=== PATIENT | male | born 1970 | race Caucasian/White ===

== ENCOUNTER 2017-01-22 23:35 | Emergency (ER) | payer OTHER ==
[~2017-01-22] VITALS: Ht 172.7 cm; Wt 73.8 kg
[2017-01-23 01:02] LABS: BASOPHIL COUNT 0.1 K/uL (0-0.1); EOSINOPHIL COUNT 0.2 K/uL (0-0.3); HEMATOCRIT 42.5 % (38.0-50.0); IMMATURE GRANULOCYTE (%) 0.8 % (0.0-0.7); IMMATURE GRANULOCYTE COUNT 0.1 K/uL; INSTRUMENT ABS NEUTROPHIL CT 7.6 K/uL; LYMPHOCYTE COUNT 3.4 K/uL (1.0-2.8); MCH 29.5 PG (29.0-34.0); MCHC 34.4 G/DL (30.0-36.0); MCV 85.9 FL (86-99); MEAN PLAT.VOLUME 10.2 uM^3 (9.0-12.4); MONOCYTE (%) 6.9 % (3-12); MONOCYTE COUNT 0.9 K/uL (0-0.8); NEUTROPHIL COUNT 7.6 K/uL (1.8-6.4); PLATELET COUNT 150 K/uL (156-360); RBC DIS.WIDTH-CV 13.2 % (11.8-14.6); RBC DIS.WIDTH-SD 41.1 % (39-53); RED BLOOD COUNT 4.95 M/uL (4.00-5.50); WHITE BLOOD COUNT 12.2 K/uL (4.1-10.2)
[2017-01-23 01:11] LABS: CHLORIDE 111 mEq/L (99-109); POTASSIUM 3.7 mEq/L (3.7-5.4); SODIUM 143 mEq/L (136-147)
[2017-01-23 01:13] LABS: GLUCOSE 130 mg/dL (70-99)
[2017-01-23 01:14] LABS: ANION GAP 9 MEQ/L (2-14)
[2017-01-23 01:16] LABS: SERUM ETHYL ALCOHOL < 10 mg/dL
[2017-01-23 01:17] LABS: GFR ESTIMATE (CALCULATED) > 59 mL/min/
[2017-01-23 01:18] LABS: UREA NITROGEN (BUN) 12 mg/dL (9-23)
[2017-01-23 02:11] VITALS: BP 125/86
== END 2017-01-23 02:11 | disposition home or self-care (01) ==
LOC: EME 23:35
PROVIDERS: Emergency Medicine
DX: R45.851 Suicidal ideations (principal); F43.10 Post-traumatic stress disorder, unspecified; F17.200 Nicotine dependence, unspecified, uncomplicated; Z88.0 Allergy status to penicillin
CPT/HCPCS: 80048; 85025; 90837; 99281; 99284; G0480